=== PATIENT | male | born 1985 | race Caucasian/White ===

== ENCOUNTER 2022-12-24 20:01 | Emergency (ER) | payer BC ==
[2022-12-24] MEDS ORDERED: cloNIDine 0.1 MG Tab PO ONE ×2 (20:32→21:37)
[2022-12-24] MEDS ORDERED: Losartan 50 MG Tab PO ONE (22:23)
== END 2022-12-24 23:00 | disposition home or self-care (01) ==
LOC: JD.ED 20:01
DX: R07.89 Other chest pain (principal); I10 Essential (primary) hypertension; Z87.891 Personal history of nicotine dependence
CPT/HCPCS: 36415; 71046; 80053; 84484; 85007; 85027; 93005; 99285; A9270; 93010; 99283